=== PATIENT | male | born 1960 | race Caucasian/White ===

== ENCOUNTER → 2021-03-02 10:29 | Outpatient (CLI) | payer BC, SELFPAY ==
--- NOTE | ~2021-03-02 | XR_ITS ---
EXAMINATION: XR knee RT min 4V DATE: 03/02/2021 10:43 INDICATION: Right knee pain TECHNIQUE: Anteroposterior, 2 oblique, sunrise and crosstable lateral views of the right knee were ob tained COMPARISON: None. FINDINGS: Alignment is normal. No fracture. There is at least mild joint space narrowing in the medial compart ment of the right knee which could be underestimated on nonweightbearing imaging. Additional mild misty nt space narrowing at the medial aspect of the patellofemoral compartment. No joint effusion/layering lipohemarthrosis. Small amount of enthesopathic calcification at the distal quadriceps tendon. Soft tissues are unremarkable. IMPRESSION: 1. Mild medial and patellofemoral osteoarthritis. No right knee joint effusion or acute osseous abnor mality. Reviewed, dictated and finalized at location B. 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 Mild medial and patellofemoral osteoarthritis. No right knee joint effusion or acute osseous abnormality.
== END ==
PROVIDERS: PCP Internal Medicine; Visit Provider Internal Medicine
DX: M25.561 Pain in right knee (principal); M17.11 Unilateral primary osteoarthritis, right knee
CPT/HCPCS: 73564

== ENCOUNTER 2022-09-14 10:55 | Inpatient (IN) | payer OTHER, SELFPAY ==
[2022-09-14] VITALS (34 sets, daily range): BP systolic 102–130; BP diastolic 60–102; PULSE 66–118; RESP 12–24; TEMP 35.7–36.6; O2SAT 93–99; BMI 30.6
--- NOTE | ~2022-09-14 | US_ITS ---
EXAMINATION: US venous doppler [facility] DATE: 09/14/2022 22:45 INDICATION: Edema . TECHNIQUE: Grayscale images without and with compression and Doppler images of the bilateral lower ex tremity veins were obtained. COMPARISON: None FINDINGS: The right common femoral vein, profunda (deep) femoral vein, femoral vein, popliteal vein, peroneal v ein, posterior tibial veins, gastrocnemius vein, and greater saphenous vein are patent. The left common femoral vein, profunda (deep) femoral vein, femoral vein, popliteal vein, peroneal v ein, posterior tibial veins, gastrocnemius vein, and greater saphenous vein are patent. IMPRESSION: 1. Patent bilateral lower extremity veins. No evidence of deep venous thrombosis. Reviewed, dictated and finalized at location K. IMPRESSION: 1. Patent bilateral lower extremity veins. No evidence of deep venous thrombos is.
--- NOTE | ~2022-09-14 | XR_ITS ---
EXAMINATION: XR chest 2V DATE: 09/14/2022 12:36 INDICATION: Shortness of breath. TECHNIQUE: Frontal and lateral views of the chest were obtained. COMPARISON: None. FINDINGS: There is mild atelectasis at left lung base. There is a small left pleural effusion. No pne umothorax. Cardiomegaly is noted. There is mild chronic anterior wedging of multiple midthoracic vert ebral bodies. IMPRESSION: 1. Small left pleural effusion. 2. Cardiomegaly. Reviewed, dictated and finalized at location A.
--- NOTE | 2022-09-14 11:42 | PC.NURSE ---
Pt states he was recently diagnosed with A-fib.
--- NOTE | 2022-09-14 11:43 | ECG_ITS ---
Measurements Intervals [place] Rate: 103 P: [place]: 0 QRS: 15 QRSD: 104 T: 135 QT: 371 QTc: 487 Interpretive Statements ATRIAL FIBRILLATION WITH RAPID VENTRICULAR RESPONSE BORDERLINE R WAVE PROGRESSION, ANTERIOR LEADS NONSPECIFIC T-WAVE ABNORMALITY- HIGH LATERAL LEADS ABNORMAL ECG NO PREVIOUS ECG AVAILABLE FOR COMPARISON Electronically Signed On 09-14-2022 13:09:58 CDT by Sascha Duke D.O.
[2022-09-14 12:24] LABS: Basophils Percent Auto 0.3 % (0.2-1.2); Eosinophils Absolute Auto 0.1 K/mm3 (0-0.3); Eosinophils Percent Auto 0.8 % (0-4.4); Hematocrit 44.3 % (42.0-52.0); Hemoglobin 14.2 g/dL (14.0-18.0); Immature Granulocyte Absolute 0.01 K/mm3 (0.00-0.031); Immature Granulocyte Percent A 0.2 % (0-0.5); Lymphocytes Percent Auto 23.8 % (18.3-44.2); Mean Corpuscular HGB Conc 32.1 g/dl (32-36); Mean Corpuscular Hemoglobin 30.1 pg (26-34); Mean Corpuscular Volume 94.1 fl (80-100); Mean Platelet Volume 11.5 fl (7.4-10.4); Monocytes Absolute Auto 0.4 K/mm3 (0.1-0.6); Monocytes Percent Auto 7.1 % (2.6-8.5); Neutrophils Percent Auto 67.8 % (45.5-73.1); Platelet Count Result 132 k/mm3 (150-375); Red Blood Count 4.71 M/mm3 (4.6-6.20); Red Cell Distribution Width 13.5 % (11.5-14.5); White Blood Count 5.9 K/mm3 (4.5-10.0)
[2022-09-14 12:34] LABS: Alanine Aminotransferase 27 U/L (6-50); Albumin Level 3.9 g/dL (3.5-5.1); Alkaline Phosphatase 52 U/L (38-126); Anion Gap 6 mmol/L (8-16); Aspartate Amino Transferase 27 U/L (17-59); Bilirubin,Total 1.8 mg/dL (0.2-1.3); Blood Urea Nitrogen 22 mg/dL (9-20); Calcium 8.9 mg/dL (8.4-10.2); Carbon Dioxide 26 mmol/L (22-30); Chloride 104 mmol/L (98-107); Estimated CRCL calculation 57 ml/min; Estimated Glomerular Filt Rate > 60; Glucose 142 mg/dL (65-110); Potassium 4.5 mmol/L (3.4-5.0); Sodium 136 mmol/L (137-145)
[2022-09-14 14:43] LABS: NT Pro B Type Natriuretic Pept 1870 pg/mL (19.9-100)
[2022-09-14] MEDS: FUROSEMIDE INJ 40 MG/4 ML VIAL IV PUSH (14:52)
--- NOTE | 2022-09-14 15:06 | ED.SOB ---
HPI - SOB/Dyspnea General Chief Complaint: Shortness of Breath/Dyspnea Stated Complaint: SOB Time Seen by Provider: 09/14/22 11:55 History of Present Illness HPI Narrative: Patient is a 61-year-old male who presents ER with shortness of breath. Reports for the last 2 weeks he has been having increased exertional fatigue and dyspnea. He has to take a break after walking approximately 100 yards. No chest pain or chest pressure. He was at his primary care physician's office yesterday and found to be in atrial fibrillation which is a new diagnosis. He was told to come to the ER but waited until today. He reports no edema over the last 2 weeks as well. He endorses orthopnea. No history of heart disease. Related Data Allergies Allergy/AdvReac Type Severity Reaction Status Date / Time No Known Allergies Verified 05/27/09 10:32 Review of Systems Review of Systems: All systems reviewed & are unremarkable except as noted in HPI and below Constitutional: Constitutional: Denies chills, Reports fatigue and Denies fever(s) ENT: Denies nasal congestion and Denies sore throat Cardiovascular: Cardiovascular: Denies chest pain, Denies rapid heart rate and Denies radiating jaw, neck or arm pain Respiratory: Respiratory: Denies cough, Reports dyspnea and Denies wheezing Gastrointestinal: Gastrointestinal: Denies abdominal pain, Denies nausea and Denies vomiting Musculoskeletal: Musculoskeletal: Denies arthralgias and Denies joint swelling Comments: Leg edema PMFSH Past Medical History Medical History Atrial fibrillation Chronic hepatitis C without hepatic coma Elevated liver enzymes Gout HTN (hypertension) Type 2 diabetes mellitus Family History Family History Mother Family history of Alzheimer's disease Sibling Diabetes mellitus Father Heart disease Myocardial infarction Social History Social History (Updated 09/13/22 @ 09:58 by Reid Weston MA) Smoking status: Never smoker Alcohol intake: current Alcohol use details: rarely Substance use: never Lack of Transportation: No Lack of Food: Never True Current Housing: I Have Housing Concerned About Future Housing: No Difficulty Paying Gas/Electric Bills: No Difficulty Paying for Meds: No Currently Unemployed: No Education: Trade/Vocational Certificate Difficulty w/ Childcare or Family Care: No Exam Narrative: GENERAL: Well-appearing, well-nourished, and in no acute distress. HEAD: Normocephalic, atraumatic. EYES: PERRL and EOMI. ENT: Mucous membranes moist. CHEST: Clear to auscultation. No respiratory distress. HEART: Irregular regular rate and rhythm. Normal peripheral pulses. ABDOMEN: Soft, nontender, nondistended. EXTREMITIES: Normal range of motion. +2 edema. SKIN: Warm, dry, no rash. NEURO: Alert and oriented x3. PSYCH: Normal mood and affect. Course Course Emergency Course: Discussed case with cardiology. Admit to hospitalist service. Patient will receive Lasix/Lovenox/echocardiogram. Patient aware of diagnosis and treatment plan. Vital Signs Vital signs: Vital Signs Temperature 97.4 F L 09/14/22 11:29 Pulse Rate 78 09/14/22 11:29 Respiratory Rate 18 09/14/22 11:29 Blood Pressure 106/69 09/14/22 11:29 Pulse Oximetry 96 09/14/22 11:29 Oxygen Delivery Room Air 09/14/22 11:29 Temperature 97.4 F L 09/14/22 11:29 Pulse Rate 84 09/14/22 13:46 Respiratory Rate 13 09/14/22 13:46 Blood Pressure 113/82 09/14/22 13:45 Pulse Oximetry 98 09/14/22 13:46 Oxygen Delivery Room Air 09/14/22 11:49 MDM - SOB/Dyspnea Lab Data 09/14/22 12:12 09/14/22 12:12 Labs: Lab Results 09/14/22 Range/Units 12:12 WBC 5.9 (4.5-10.0) K/mm3 RBC 4.71 (4.6-6.20) M/mm3 Hgb 14.2 (14.0-18.0) g/dL Hct 44.3 (42.0-52
[2022-09-14] MEDS: ENOXAPARIN 80 MG/0.8 ML SYRINGE 71 MG SUB-Q (15:20)
--- NOTE | 2022-09-14 15:57 | PM.IMHP ---
H&P: HPI History of Present Illness Date/Time: 09/14/22 17:30 Chief Complaint: Shortness of breath. Narrative: This is a 61-year-old male with hypertension, type 2 diabetes mellitus, and gout who presented to the emergency department via private vehicle for evaluation of shortness of breath. The patient provides the following history. A couple of months ago he had a cold and cough and since that time he has been getting short of breath with activities that he could previously do without issue. For instance walking around work or carrying something heavy. More recently he has been getting a bit winded with everyday activities such as walking 100 yd from his car to work. He has been getting a bit short of breath at night as well and has noticed swelling in his legs. He had a wellness exam at his doctor's office today and mentioned the above symptoms. EKG was done he was found to be in atrial fibrillation and he was directed to the ED with concerns for possible CHF as well. His heart rate has been in the 90s to low 100s since arrival and he reports that his baseline heart rate is right around there. Chest x-ray shows a small left pleural effusion with cardiomegaly and proBNP was 1870. He has no sensations of irregular heartbeat, palpitations, or racing heart. He denies syncope, near syncope, chest pain, pleuritic pain, nausea, and vomiting. He has no known history of cardiac disease or dysrhythmia. Stress test x2 over the years have been negative, the last being approximately 5 years ago. He rarely snores and denies concerns for sleep apnea. No history of thyroid disease. He is a former heavy drinker but has not done so in many years. He drinks 4 to 6 cans of caffeinated sodas a day. At the time my evaluation he has no specific complaints. He has had good urine output with the Lasix and reports that his ankles are looking less swollen already. Review of Systems Review of Systems: Twelve systems were reviewed and are negative except for as per HPI. [facility] Past Medical History Medical History (Updated 09/14/22 @ 20:58 by Dhara Hudson PA-C) Chronic hepatitis C without hepatic coma Patient was referred to hepatology at [facility] and was told that he did not need treatment and they thought perhaps it was a false positive. Gout Hypertension Type 2 diabetes mellitus Surgical History Surgical History (Updated 09/14/22 @ 20:51 by Dhara Hudson PA-C) No history of previous surgery Family History Family History Mother Family history of Alzheimer's disease Sibling Diabetes mellitus Father Heart disease Myocardial infarction Social History Social History (Updated 09/14/22 @ 20:52 by Dhara Hudson PA-C) Social History: Surrogate medical decision maker: Johana Chin, significant other. Code status: Full code. Smoking status: Never smoker Alcohol intake: current Alcohol use details: Rare alcohol use in moderation. Former heavier drinker. Substance use: never Lack of Transportation: No Lack of Food: Never True Current Housing: I Have Housing Concerned About Future Housing: No Difficulty Paying Gas/Electric Bills: No Difficulty Paying for Meds: No Currently Unemployed: No Education: Bachelor's Degree Difficulty w/ Childcare or Family Care: No Spiritual care concerns: No Meds Home Medications and Allergies Home Medications Medication Instructions Recorded Confirmed Type amlodipine 5 mg tablet 5 mg PO DAILY #30 tabs 08/27/22 09/14/22 Rx lisinopril 20 mg tablet 20 mg PO DAILY #30 tabs 08/27/22 09/14/22 Rx Allergies Allergy/AdvReac Type Severity Reaction Status Date / Time No Known Allergies Verified 05/27/09 10:32 Vital Signs Vital Signs - 24 hr 09/14/22 11:29 09/14/22 11:49 09/14/22 11:49 Temperature 97.4 F L Pulse Rate 78 76 Respiratory Rate 18 20 Blood Pressure 106/69 106/80 Pulse Oximetry 96 9
--- NOTE | 2022-09-14 18:26 | ADMGEN ---
This patient, Adiel New, was admitted to IMU Room 210-. Patient/family oriented to hospital policies and general routines including ID bracelet, bed and alarms, visiting hours, pain management, procedures, bathroom and other care routines, personal items, smoking policy, room service/diet, and visiting hours. Information on how to activate the Rapid Response Team has been discussed. Patient/Family are encouraged to report perceived risks to care and to ask questions if they do not understand what they are told or what they should do.
[2022-09-14 21:48] LABS: Hemoglobin A1C 6.3 % (<5.7)
[2022-09-14] MEDS: FUROSEMIDE INJ 40 MG/4 ML VIAL 20 MG IV PUSH (21:56)
[2022-09-14] MEDS: ENOXAPARIN 100 MG/ML SYRINGE 90 MG SUB-Q (23:33)
[2022-09-15] VITALS (18 sets, daily range): BP systolic 95–138; BP diastolic 65–99; PULSE 82–114; RESP 20; TEMP 35.8–36.8; O2SAT 95–100
--- NOTE | 2022-09-15 06:00 | ECHO_ITS ---
Patient Info Name: Adiel New Age: 61 years : 1960 Gender: Male Ht: 69 in Wt: 208 lbs BSA: 2.17 m2 HR: 95 bpm Heart Rhythm: Indeterminant Technical Quality: Good Exam Date: 09/15/2022 9:03 AM Exam Location: [facility] Patient Status: Outpatient Admit Date: 09/14/2022 Staff Ordering Physician: Sundeep Marmolejo MD Subsea Engineer: Mckenzie Mahmood RDCS Attending Provider: Emili Thornton MD Referring Physician: Jaleel HUNTER; Exam Type: CA echo doppler color flow Study Info Indications - new a- fib Complete two-dimensional, color flow and Doppler transthoracic echocardiogram is performed. Summary 1. Complete two-dimensional, color flow and Doppler transthoracic echocardiogram is performed. 2. Left ventricular chamber dimension is mildly enlarged. 3. Left ventricular systolic function is severely reduced, estimated at 25-30%. 4. There is no increased left ventricular wall thickness. 5. The left ventricular diastolic function is indeterminate. 6. Global hypokinesis of the left ventricle. 7. Left atrial chamber dimension is severely enlarged. 8. Right atrial chamber dimension is mildly enlarged. 9. There is mild mitral valve regurgitation. 10. The mitral valve annulus is mildly calcified. 11. There is mild tricuspid valve regurgitation. Left Ventricle Left ventricular chamber dimension is mildly enlarged. Left ventricular systolic function is severely reduced, estimated at 25-30%. There is no increased left ventricular wall thickness. The left ventricular diastolic function is indeterminate. Global hypokinesis of the left ventricle. Right Ventricle Right ventricular chamber dimension is normal. Right ventricular systolic function is normal. Left Atria Left atrial chamber dimension is severely enlarged. Right Atria Right atrial chamber dimension is mildly enlarged. Atrial Septum Intact interatrial septum visualized by color flow imaging. Aortic Valve The aortic valve is trileaflet. There is mild aortic valve sclerosis. There is no aortic valve stenosis. There is trace aortic valve regurgitation. Pulmonic Valve The pulmonic valve is normal. There is no pulmonic valve stenosis. There is trace pulmonic regurgitation. Mitral Valve There is no mitral valve stenosis. There is mild mitral valve regurgitation. The mitral valve annulus is mildly calcified. Tricuspid Valve The tricuspid valve leaflets are normal. There is no significant tricuspid valve stenosis. There is mild tricuspid valve regurgitation. No pulmonary hypertension, estimated pulmonary arterial systolic pressure is 26 mmHg. Pericardium/Pleural The pericardium appears normal. There is trivial pericardial effusion. Inferior Vena Cava Dilated inferior vena cava with <50% collapse upon inspiration consistent with elevated right atrial pressure, 15 mmHg. Aorta The aortic root size at the sinus of Valsalva is normal. Left Ventricular Outflow Tract Name Value Normal LVOT 2D LVOT Diameter 2.0 cm LVOT Doppler LVOT Peak Gradient 5 mmHg LVOT Mean Gradient 3 mmHg LVOT VTI 21 cm LVOT VTI/AV VTI Ratio
[2022-09-15 07:56] LABS: Hemoglobin 15.2 g/dL (14.0-18.0); Mean Corpuscular HGB Conc 32.3 g/dl (32-36); Mean Corpuscular Hemoglobin 29.7 pg (26-34); Mean Platelet Volume 11.1 fl (7.4-10.4); Platelet Count Result 145 k/mm3 (150-375); Red Blood Count 5.11 M/mm3 (4.6-6.20); Red Cell Distribution Width 13.1 % (11.5-14.5); White Blood Count 6.5 K/mm3 (4.5-10.0)
[2022-09-15 08:07] LABS: Alanine Aminotransferase 26 U/L (6-50); Alkaline Phosphatase 57 U/L (38-126); Anion Gap 9 mmol/L (8-16); Aspartate Amino Transferase 28 U/L (17-59); Bilirubin,Total 2.4 mg/dL (0.2-1.3); Blood Urea Nitrogen 25 mg/dL (9-20); Calcium 8.9 mg/dL (8.4-10.2); Carbon Dioxide 27 mmol/L (22-30); Chloride 100 mmol/L (98-107); Cholesterol 179 mg/dL (0-200); Estimated CRCL calculation 63 ml/min; Estimated Glomerular Filt Rate > 60; Glucose 98 mg/dL (65-110); HDL Direct 35 mg/dL; Potassium 3.9 mmol/L (3.4-5.0); Sodium 136 mmol/L (137-145); Triglycerides 135 mg/dL (<150)
[2022-09-15 08:07] LABS: Glucose Point of Care 105 mg/dl (65-105)
[2022-09-15 08:17] LABS: LDL Cholesterol Direct 118 mg/dL
[2022-09-15] MEDS: amLODIPine BESYLATE 5 MG TABLET PO (10:08)
[2022-09-15] MEDS: lisinopriL 20 MG TABLET PO (10:10)
[2022-09-15] MEDS: FUROSEMIDE INJ 40 MG/4 ML VIAL 20 MG IV PUSH ×2 (10:10→16:58)
[2022-09-15] MEDS: ENOXAPARIN 100 MG/ML SYRINGE 90 MG SUB-Q ×2 (11:16→23:17)
[2022-09-15 11:54] LABS: Glucose Point of Care 137 mg/dl (65-105)
--- NOTE | 2022-09-15 12:42 | PM.CNCAR ---
Assessment and Plan Assessment and plan (1) Shortness of breath: Code(s): R06.02 - Shortness of breath Status: Acute Assessment and Plan: Likely related to congestive heart failure. This is likely systolic in etiology and possibly from atrial fibrillation and rapid ventricular response. Cannot exclude other etiologies O2 this point. 2D echocardiogram is ordered will be reviewed. Will start metoprolol succinate 25 mg p.o. daily. Continue IV diuresis but will transition to oral furosemide 20 mg daily starting tomorrow. Continue ZURDO-inhibitor and may transition to Entresto depending on the results of the echocardiogram. Will discontinue amlodipine in lieu of starting metoprolol (2) New onset atrial fibrillation: Code(s): I48.91 - Unspecified atrial fibrillation Status: Acute Assessment and Plan: Enoxaparin 1 milligram/kilogram subQ q.12 hours. Will start metoprolol as detailed above. Will rate control him for now and then pursue outpatient elective cardioversion in 4-6 weeks. Will michael out oral anticoagulation to his pharmacy in either put him on Eliquis 5 mg p.o. b.i.d. or Xarelto. Eventual outpatient ischemic evaluation (3) Hypertension: Code(s): I10 - Essential (primary) hypertension Status: Acute Assessment and Plan: As detailed above (4) Type 2 diabetes mellitus: Qualifiers: Diabetes mellitus halfway insulin use: without long term care social worker use Diabetes mellitus complication status: without complication Qualified Code(s): E11.9 - Type 2 diabetes mellitus without complications Code(s): E11.9 - Type 2 diabetes mellitus without complications Status: Acute Assessment and Plan: Per hospitalist History of Present Illness History of Present Illness Consult date/time: 09/15/22 12:42 Requesting physician: Emili Thornton MD Consult reason: atrial fibrillation and congestive heart failure Reason For Visit: New Onset Afib/CHF Narrative: : Reason for consultation: Atrial fibrillation, congestive heart failure Date of service 09/15/2022 Requesting provider: Dr. Thornton History: Patient is 59-year-old male who has history of hypertension, diabetes and gout who presented the hospital because of shortness of breath. Patient states that for the past couple months he has been progressively more short of breath. He states it would come and go but overall was progressively worsening. He denies any chest pain, syncope, presyncope but has been having some lower extremity swelling also. He does describe some paroxysmal nocturnal dyspnea on occasion. Dyspnea will occur whenever doing things such as mowing the grass rhythm walking about 100 yd to and from work. He does not have any palpitations. He came to the hospital was found in atrial fibrillation with rapid ventricular response as well as an elevated BNP and a left pleural effusion noted on chest x-ray. He was diuresed and his edema has improved. He remains in atrial fibrillation Review of Systems Review of Systems: All systems reviewed & are unremarkable except as noted in HPI and below Constitutional: Constitutional: Denies chills Eyes: Eyes: Denies blurry vision ENT: Reports Normal hearing present Cardiovascular: Cardiovascular: Denies chest pain, Reports leg edema and Denies palpitations Respiratory: Respiratory: Reports dyspnea Gastrointestinal: Gastrointestinal: Denies abdominal pain Genitourinary: Genitourinary: Denies hematuria Musculoskeletal: Musculoskeletal: Denies back pain Integumentary/Breasts: Skin/Breast: Denies rash Neurologic: Denies headache(s) Psychiatric: Psychiatric: Denies anxiety Endocrine: Endocrine: Denies excessive sweating Hematologic/Lymphatic: Hematologic/Lymphatic: Denies easy bleeding Allergic/Immunologic: Allergic/Immunologic: Denies GI upset with certain foods PMFSH Past Medical History Medical History (Reviewed 09/15/22 @ 12:44 by Carlton
[2022-09-15] MEDS: METOPROLOL SUCCINATE EXT REL 25 MG TABCR PO (13:56)
[2022-09-15 16:15] LABS: Glucose Point of Care 95 mg/dl (65-105)
--- NOTE | 2022-09-15 17:27 | WPDPN ---
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 Labs, imaging, EKG, and all reports were personally reviewed. He reports dyspnea on exertion for the last couple of months, worse recently. He has been started on Lasix 40 mg IV b.i.d. for findings concerning for CHF (cardiomegaly, small pleural effusion, lower extremity edema). He was also found to be in atrial fibrillation which is a new diagnosis for him; is difficult to say how long he has been in this rhythm as he does not have palpitations or sensations of racing heart. CHADS2 Vasc score is at least 2 (hypertension, diabetes) and he has been started on Lovenox 1 mg/kg. Echocardiogram, TSH, an apnea link ordered for further evaluation. Initiate sliding scale insulin, Accu-Cheks, and hypoglycemic protocol. Check hemoglobin A1c. Blood pressures have been stable. His antihypertensives will be reviewed and resumed as appropriate. He has lower extremity edema which is likely due to suspected CHF though will obtain venous Doppler ultrasounds to rule out DVT. 09/15/2022 interval history: 61-year-old male presented with complaint of shortness of breath with elevated BNP and 1870 and chest x-ray shows edema and lungs sound rales, patient is having exacerbation of CHF patient is being diuresed, etiology is uncertain, cardiac ECHO is pending will follow up, will have PT/OT evaluate the patient. Subjective Date/time seen: 09/15/22 17:27 Interval history: Shortness of breath. HPI-Narrative: This is a 61-year-old male with hypertension, type 2 diabetes mellitus, and gout who presented to the emergency department via private vehicle for evaluation of shortness of breath. The patient provides the following history. A couple of months ago he had a cold and cough and since that time he has been getting short of breath with activities that he could previously do without issue. For instance walking around work or carrying something heavy. More recently he has been getting a bit winded with everyday activities such as walking 100 yd from his car to work. He has been getting a bit short of breath at night as well and has noticed swelling in his legs. He had a wellness exam at his doctor's office today and mentioned the above symptoms. EKG was done he was found to be in atrial fibrillation and he was directed to the ED with concerns for possible CHF as well. His heart rate has been in the 90s to low 100s since arrival and he reports that his baseline heart rate is right around there. Chest x-ray shows a small left pleural effusion with cardiomegaly and proBNP was 1870. He has no sensations of irregular heartbeat, palpitations, or racing heart. He denies syncope, near syncope, chest pain, pleuritic pain, nausea, and vomiting. He has no known history of cardiac disease or dysrhythmia. Stress test x2 over the years have been negative, the last being approximately 5 years ago. He rarely snores and denies concerns for sleep apnea. No history of thyroid disease. He is a former heavy drinker but has not done so in many years.
[2022-09-15 20:08] LABS: Glucose Point of Care 333 mg/dl (65-105)
[2022-09-15] MEDS: INSULIN ASPART (*BKC) 100 UNITS/ML SUB-Q (21:02)
[2022-09-16] VITALS (16 sets, daily range): BP systolic 91–109; BP diastolic 61–82; PULSE 84–106; RESP 12–20; TEMP 36.3–37.5; O2SAT 98–99
[2022-09-16 00:09] LABS: Glucose Point of Care 75 mg/dl (65-105)
[2022-09-16 05:17] LABS: Hematocrit 47.7 % (42.0-52.0); Hemoglobin 15.9 g/dL (14.0-18.0); Mean Corpuscular HGB Conc 33.3 g/dl (32-36); Mean Corpuscular Hemoglobin 30.3 pg (26-34); Mean Platelet Volume 11.6 fl (7.4-10.4); Platelet Count Result 153 k/mm3 (150-375); Red Blood Count 5.24 M/mm3 (4.6-6.20); Red Cell Distribution Width 12.8 % (11.5-14.5); White Blood Count 7.3 K/mm3 (4.5-10.0)
[2022-09-16 05:26] LABS: Anion Gap 7 mmol/L (8-16); Blood Urea Nitrogen 27 mg/dL (9-20); Calcium 9.1 mg/dL (8.4-10.2); Carbon Dioxide 33 mmol/L (22-30); Chloride 96 mmol/L (98-107); Estimated CRCL calculation 63 ml/min; Estimated Glomerular Filt Rate > 60; Glucose 113 mg/dL (65-110); Magnesium 2.2 mg/dL (1.6-2.3); Potassium 3.9 mmol/L (3.4-5.0); Sodium 136 mmol/L (137-145)
[2022-09-16 08:17] LABS: Glucose Point of Care 108 mg/dl (65-105)
[2022-09-16] MEDS: FUROSEMIDE INJ 40 MG/4 ML VIAL 20 MG IV PUSH (08:46)
[2022-09-16] MEDS: METOPROLOL SUCCINATE EXT REL 25 MG TABCR PO (08:47)
--- NOTE | 2022-09-16 08:54 | PM.PNCARD ---
Progress Note: A&P Assessment and Plan (1) Shortness of breath: Code(s): R06.02 - Shortness of breath Status: Acute Assessment and Plan: Related to acute systolic congestive heart failure. Possibly from atrial fibrillation and rapid ventricular response. Cannot exclude other etiologies also this point. (2) New onset atrial fibrillation: Code(s): I48.91 - Unspecified atrial fibrillation Status: Acute Assessment and Plan: Discontinue enoxaparin and transition to Xarelto 20 mg p.o. daily. Continue metoprolol for rate control for now. Outpatient elective cardioversion in 4-6 weeks. (3) Hypertension: Code(s): I10 - Essential (primary) hypertension Status: Acute Assessment and Plan: As detailed above (4) Type 2 diabetes mellitus: Qualifiers: Diabetes mellitus extermination inspector insulin use: without extermination inspector use Diabetes mellitus complication status: without complication Qualified Code(s): E11.9 - Type 2 diabetes mellitus without complications Code(s): E11.9 - Type 2 diabetes mellitus without complications Status: Acute Assessment and Plan: Per hospitalist (5) Cardiomyopathy: Code(s): I42.9 - Cardiomyopathy, unspecified Status: Acute Assessment and Plan: Discontinue lisinopril. Will transition to Entresto 24/26 mg 1 tablet p.o. b.i.d.. Continue metoprolol. Order LifeVest as his EF is less than 35% for primary prevention of sudden cardiac (6) Acute systolic (congestive) heart failure: Code(s): I50.21 - Acute systolic (congestive) heart failure Status: Acute Assessment and Plan: Transition to Entresto. Continue metoprolol. Discontinue IV Lasix and will start p.o. furosemide 20 mg daily. Eventual ischemic evaluation as an outpatient Subjective Date/time seen: 09/16/22 08:54 Interval history: Reason for admission: CHF 61-year-old admitted with worsening shortness of breath, heart failure and atrial fibrillation Date of service 09/16/2022: Feels better. Swelling is essentially gone. Has not walked much but breathing is not labored at rest. No chest pain Review of Systems Review of Systems: All systems reviewed & are unremarkable except as noted in HPI and below Constitutional: Constitutional: Denies chills, Denies excessive sweating and Denies headache(s) Eyes: Eyes: Denies blurry vision ENT: Reports Normal hearing present and Denies headache(s) Cardiovascular: Cardiovascular: Denies chest pain, Reports leg edema, Denies palpitations and Reports dyspnea Respiratory: Respiratory: Reports dyspnea Gastrointestinal: Gastrointestinal: Denies abdominal pain Genitourinary: Genitourinary: Denies hematuria Musculoskeletal: Musculoskeletal: Denies back pain Integumentary/Breasts: Skin/Breast: Denies rash Neurologic: Reports Normal hearing present and Denies headache(s) Psychiatric: Psychiatric: Denies anxiety Endocrine: Endocrine: Denies excessive sweating and Denies palpitations Hematologic/Lymphatic: Hematologic/Lymphatic: Denies easy bleeding Allergic/Immunologic: Allergic/Immunologic: Denies GI upset with certain foods Exam Narrative: Awake alert oriented appears to be in no acute distress and stated age Const: General: comfortable and no acute distress HENMT: Face/Nose/Sinus: Normal nares present Mouth: Yes moist mucous membranes Eyes: General: appearance normal, both eyes and all related structures Sclera: sclerae normal Neck: Neck: supple and no JVD Chest: Other: No reproducible chest wall pain to palpation Resp: Effort & Inspection: normal respiratory effort Auscultation: clear to auscultation bilaterally Cardio: Rate: regular rate Rhythm: abnormal rhythm irregularly irregular Heart sounds: no murmurs GI: Inspection: non-distended Auscultation: normal bowel sounds Skin: General skin exam: normal color Neuro: Cranial nerves: Ye
[2022-09-16 12:09] LABS: Glucose Point of Care 144 mg/dl (65-105)
--- NOTE | 2022-09-16 14:06 | WPDPN ---
Progress Note: A&P Assessment and Plan (1) New onset atrial fibrillation: Code(s): I48.91 - Unspecified atrial fibrillation Status: Acute (2) Suspected congestive heart failure: Code(s): R09.89 - Other specified symptoms and signs involving the circulatory and respiratory systems Status: Acute (3) Shortness of breath: Code(s): R06.02 - Shortness of breath Status: Acute (4) Type 2 diabetes mellitus: Qualifiers: Diabetes mellitus terminal operations supervisor insulin use: without group home use Diabetes mellitus complication status: without complication Qualified Code(s): E11.9 - Type 2 diabetes mellitus without complications Code(s): E11.9 - Type 2 diabetes mellitus without complications Status: Acute (5) Hypertension: Code(s): I10 - Essential (primary) hypertension Status: Acute Plan The patient presented to the emergency department today after he was found to be in atrial fibrillation as per HPI. Labs, imaging, EKG, and all reports were personally reviewed. He reports dyspnea on exertion for the last couple of months, worse recently. He has been started on Lasix 40 mg IV b.i.d. for findings concerning for CHF (cardiomegaly, small pleural effusion, lower extremity edema). He was also found to be in atrial fibrillation which is a new diagnosis for him; is difficult to say how long he has been in this rhythm as he does not have palpitations or sensations of racing heart. CHADS2 Vasc score is at least 2 (hypertension, diabetes) and he has been started on Lovenox 1 mg/kg. Echocardiogram, TSH, an apnea link ordered for further evaluation. Initiate sliding scale insulin, Accu-Cheks, and hypoglycemic protocol. Check hemoglobin A1c. Blood pressures have been stable. His antihypertensives will be reviewed and resumed as appropriate. He has lower extremity edema which is likely due to suspected CHF though will obtain venous Doppler ultrasounds to rule out DVT. 09/16/2022 interval history: 61-year-old male presented with complaint of shortness of breath with elevated BNP and 1870 and chest x-ray shows edema and lungs sound rales, patient is having acute on chronic systolic congestive Heart failure as patient ejection fraction is 25%, seen by Cardiology patient will need LifeVest upon discharge, will continue to diurese the patient, will have PT/OT evaluate the patient. Subjective Date/time seen: 09/16/22 14:06 Interval history: Shortness of breath. HPI-Narrative: This is a 61-year-old male with hypertension, type 2 diabetes mellitus, and gout who presented to the emergency department via private vehicle for evaluation of shortness of breath. The patient provides the following history. A couple of months ago he had a cold and cough and since that time he has been getting short of breath with activities that he could previously do without issue. For instance walking around work or carrying something heavy. More recently he has been getting a bit winded with everyday activities such as walking 100 yd from his car to work. He has been getting a bit short of breath at night as well and has noticed swelling in his legs. He had a wellness exam at his doctor's office today and mentioned the above symptoms. EKG was done he was found to be in atrial fibrillation and he was directed to the ED with concerns for possible CHF as well. His heart rate has been in the 90s to low 100s since arrival and he reports that his baseline heart rate is right around there. Chest x-ray shows a small left pleural effusion with cardiomegaly and proBNP was 1870. He has no sensations of irregular heartbeat, palpitations, or racing heart. He denies syncope, near syncope, chest pain, pleuritic pain, nausea, and vomiting. He has no known history of cardiac disease or dysrhythmia. Stress test x2 over the years have been negative, the last being approximately 5 years ago. He rarely snores and denies concerns for sleep apnea. No history of thyro
[2022-09-16 16:21] LABS: Glucose Point of Care 102 mg/dl (65-105)
[2022-09-16] MEDS: RIVAROXABAN 20 MG TABLET PO (17:10)
[2022-09-16 20:24] LABS: Glucose Point of Care 132 mg/dl (65-105)
[2022-09-16] MEDS: SACUBITRIL/VALSARTAN 24-26 MG TABLET 1 TAB PO (22:16)
[2022-09-17] VITALS (9 sets, daily range): BP systolic 91–98; BP diastolic 58–70; PULSE 77–115; RESP 18–20; TEMP 36.3–36.4; O2SAT 98–100
[2022-09-17 04:55] LABS: Hematocrit 48.5 % (42.0-52.0); Mean Corpuscular Hemoglobin 30.1 pg (26-34); Mean Corpuscular Volume 91.3 fl (80-100); Mean Platelet Volume 11.1 fl (7.4-10.4); Platelet Count Result 153 k/mm3 (150-375); Red Blood Count 5.31 M/mm3 (4.6-6.20); White Blood Count 7.3 K/mm3 (4.5-10.0)
[2022-09-17 05:02] LABS: Anion Gap 7 mmol/L (8-16); Blood Urea Nitrogen 25 mg/dL (9-20); Calcium 8.7 mg/dL (8.4-10.2); Carbon Dioxide 30 mmol/L (22-30); Chloride 98 mmol/L (98-107); Estimated CRCL calculation 68 ml/min; Estimated Glomerular Filt Rate > 60; Glucose 115 mg/dL (65-110); Magnesium 2.1 mg/dL (1.6-2.3); Potassium 4.3 mmol/L (3.4-5.0); Sodium 135 mmol/L (137-145)
[2022-09-17 07:51] LABS: Glucose Point of Care 130 mg/dl (65-105)
[2022-09-17] MEDS: SACUBITRIL/VALSARTAN 24-26 MG TABLET 1 TAB PO (08:26)
[2022-09-17] MEDS: FUROSEMIDE 20 MG TABLET PO (08:27)
[2022-09-17] MEDS: METOPROLOL SUCCINATE EXT REL 25 MG TABCR PO (08:27)
--- NOTE | 2022-09-17 09:46 | PM.PNCARD ---
Progress Note: A&P Assessment and Plan (1) Shortness of breath: Code(s): R06.02 - Shortness of breath Status: Acute Assessment and Plan: Resolved. Related to acute systolic congestive heart failure. Possibly from atrial fibrillation and rapid ventricular response. Cannot exclude other etiologies also this point. (2) New onset atrial fibrillation: Code(s): I48.91 - Unspecified atrial fibrillation Status: Acute Assessment and Plan: Managing with rate control strategy for now with plans for outpatient DCCV in 4-6 weeks. Continue Xarelto 20 mg p.o. daily. Continue metoprolol for rate control. (3) Hypertension: Code(s): I10 - Essential (primary) hypertension Status: Acute Assessment and Plan: At goal now with adjustments to his medical therapy for his CMY (4) Type 2 diabetes mellitus: Qualifiers: Diabetes mellitus complication status: without complication Diabetes mellitus terminal make up operator insulin use: without terminal make up operator use Qualified Code(s): E11.9 - Type 2 diabetes mellitus without complications Code(s): E11.9 - Type 2 diabetes mellitus without complications Status: Acute Assessment and Plan: Per hospitalist (5) Cardiomyopathy: Code(s): I42.9 - Cardiomyopathy, unspecified Status: Acute Assessment and Plan: This is a new diagnosis, etiology unclear at this point. He has been started on GDMT Entresto 24/26 mg 1 tablet p.o. b.i.d.. Continue metoprolol succinate 25mg daily Will add jardiance today (should not affect his blood pressure) Can add spironolactone as an outpatient if BP stable LifeVest has been ordered Eventual ischemia evaluation (6) Acute systolic (congestive) heart failure: Code(s): I50.21 - Acute systolic (congestive) heart failure Status: Acute Assessment and Plan: Improved with diuresis Continue furosemide 20mg daily Low sodium diet Monitor daily weight at home Subjective Date/time seen: 09/17/22 09:46 Interval history: Reason for admission: CHF 61-year-old admitted with worsening shortness of breath, heart failure and atrial fibrillation Date of service 09/16/2022: Feels better. Swelling is essentially gone. Has not walked much but breathing is not labored at rest. No chest pain Date of service 09/17/2022: He feels well today. No shortness of breath or orthopnea. Denies any chest pain or palpitations. Eager to go home. He has lots of questions regarding his care. Review of Systems Review of Systems: All systems reviewed & are unremarkable except as noted in HPI and below Constitutional: Constitutional: Denies chills, Denies excessive sweating and Denies headache(s) Eyes: Eyes: Denies blurry vision ENT: Reports Normal hearing present and Denies headache(s) Cardiovascular: Cardiovascular: Denies chest pain, Reports leg edema, Denies palpitations and Reports dyspnea Respiratory: Respiratory: Reports dyspnea Gastrointestinal: Gastrointestinal: Denies abdominal pain Genitourinary: Genitourinary: Denies hematuria Musculoskeletal: Musculoskeletal: Denies back pain Integumentary/Breasts: Skin/Breast: Denies rash Neurologic: Reports Normal hearing present and Denies headache(s) Psychiatric: Psychiatric: Denies anxiety Endocrine: Endocrine: Denies excessive sweating and Denies palpitations Hematologic/Lymphatic: Hematologic/Lymphatic: Denies easy bleeding Allergic/Immunologic: Allergic/Immunologic: Denies GI upset with certain foods Exam Narrative: Awake alert oriented appears to be in no acute distress and stated age Const: General: comfortable and no acute distress HENMT: Face/Nose/Sinus: Normal nares present Mouth: Yes moist mucous membranes Eyes: General: appearance normal, both eyes and all related structures Sclera: sclerae normal Neck: Neck: supple and no JVD Chest: Other: No reproducible chest wall pain to palpa
--- NOTE | 2022-09-17 10:49 | PC.NURSE ---
LifeVest in place, Dr. Thornton notified.
--- NOTE | 2022-09-17 11:41 | PM.DS ---
DS: Admitting Diagnosis Discharge Date 09/17/2022 Admitting Diagnosis Shortness of breath DS: Discharge Diagnosis Discharge Diagnosis (1) New onset atrial fibrillation: Code(s): I48.91 - Unspecified atrial fibrillation Status: Acute (2) Suspected congestive heart failure: Code(s): R09.89 - Other specified symptoms and signs involving the circulatory and respiratory systems Status: Acute (3) Shortness of breath: Code(s): R06.02 - Shortness of breath Status: Acute (4) Type 2 diabetes mellitus: Qualifiers: Diabetes mellitus skilled nursing insulin use: without skilled nursing use Diabetes mellitus complication status: without complication Qualified Code(s): E11.9 - Type 2 diabetes mellitus without complications Code(s): E11.9 - Type 2 diabetes mellitus without complications Status: Acute (5) Hypertension: Qualifiers: Hypertension type: primary hypertension Qualified Code(s): I10 - Essential (primary) hypertension Code(s): I10 - Essential (primary) hypertension Status: Acute Plan The patient presented to the emergency department today after he was found to be in atrial fibrillation as per HPI. Labs, imaging, EKG, and all reports were personally reviewed. He reports dyspnea on exertion for the last couple of months, worse recently. He has been started on Lasix 40 mg IV b.i.d. for findings concerning for CHF (cardiomegaly, small pleural effusion, lower extremity edema). He was also found to be in atrial fibrillation which is a new diagnosis for him; is difficult to say how long he has been in this rhythm as he does not have palpitations or sensations of racing heart. CHADS2 Vasc score is at least 2 (hypertension, diabetes) and he has been started on Lovenox 1 mg/kg. Echocardiogram, TSH, an apnea link ordered for further evaluation. Initiate sliding scale insulin, Accu-Cheks, and hypoglycemic protocol. Check hemoglobin A1c. Blood pressures have been stable. His antihypertensives will be reviewed and resumed as appropriate. He has lower extremity edema which is likely due to suspected CHF though will obtain venous Doppler ultrasounds to rule out DVT. 09/16/2022 interval history: 61-year-old male presented with complaint of shortness of breath with elevated BNP and 1870 and chest x-ray shows edema and lungs sound rales, patient is having acute on chronic systolic congestive Heart failure as patient ejection fraction is 25%, seen by Cardiology patient will need LifeVest upon discharge, will continue to diurese the patient, will have PT/OT evaluate the patient. DS: Summary Hospital Course Reason for hospitalization: Shortness of breath. Narrative: This is a 61-year-old male with hypertension, type 2 diabetes mellitus, and gout who presented to the emergency department via private vehicle for evaluation of shortness of breath. The patient provides the following history. A couple of months ago he had a cold and cough and since that time he has been getting short of breath with activities that he could previously do without issue. For instance walking around work or carrying something heavy. More recently he has been getting a bit winded with everyday activities such as walking 100 yd from his car to work. He has been getting a bit short of breath at night as well and has noticed swelling in his legs. He had a wellness exam at his doctor's office today and mentioned the above symptoms. EKG was done he was found to be in atrial fibrillation and he was directed to the ED with concerns for possible CHF as well. His heart rate has been in the 90s to low 100s since arrival and he reports that his baseline heart rate is right around there. Chest x-ray shows a small left pleural effusion with cardiomegaly and proBNP was 1870. He has no sensations of irregular heartbeat, palpitations, or racing heart. He denies syncope, near syncope, chest pain, pleuritic pain, nausea, and vomiting. He has
[2022-09-17 12:06] LABS: Glucose Point of Care 171 mg/dl (65-105)
== END 2022-09-17 12:15 | disposition home or self-care (01) | DRG 291 ==
LOC: ANHED 15:41 → ANHIMU 17:15
PROVIDERS: Physician Assistant; Preventive Medicine Aerospace Medicine; Admitting Provider Family Medicine; Emergency Provider Emergency Medicine; PCP Internal Medicine; Visit Provider Family Medicine
DX: I11.0 Hypertensive heart disease with heart failure (principal); I50.23 Acute on chronic systolic (congestive) heart failure; I48.91 Unspecified atrial fibrillation; E11.9 Type 2 diabetes mellitus without complications; B18.2 Chronic viral hepatitis C; I42.9 Cardiomyopathy, unspecified
CPT/HCPCS: 36415; 71046; 80048; 80053; 80061; 82948; 83036; 83735; 83880; 84443; 85025; 85027; 85055; 93005; 93306; 93970; 96372; 96374; 96376; 99285; A9270; G0378; J1650; J1815; J1940

== ENCOUNTER 2022-10-23 00:05 | Day surgery (SDC) | payer OTHER, SELFPAY ==
[2022-10-22 14:45] VITALS: BMI 30.2
[2022-10-23 07:42] VITALS: BP 105/80; PULSE 82; RESP 15; TEMP 36.3; O2SAT 97; BMI 30.7
[2022-10-23 08:01] LABS: Anion Gap 11 mmol/L (8-16); Blood Urea Nitrogen 24 mg/dL (9-20); Calcium 9.1 mg/dL (8.4-10.2); Carbon Dioxide 21 mmol/L (22-30); Chloride 106 mmol/L (98-107); Estimated CRCL calculation 60 ml/min; Estimated Glomerular Filt Rate 56; Glucose 119 mg/dL (65-110); Magnesium 2.1 mg/dL (1.6-2.3); Potassium 4.6 mmol/L (3.4-5.0); Sodium 138 mmol/L (137-145)
--- NOTE | 2022-10-23 09:00 | ECG_ITS ---
Measurements Intervals [place] Rate: 74 P: SC: 0 QRS: 5 QRSD: 103 T: 118 QT: 403 QTc: 448 Interpretive Statements ATRIAL FIBRILLATION NONSPECIFIC T-WAVE ABNORMALITY ABNORMAL ECG COMPARED TO ECG 09/14/2022 11:57:49 NO SIGNIFICANT CHANGE Electronically Signed On 10-23-2022 12:08:14 CDT by Christopher Guillen M.D.
--- NOTE | 2022-10-23 09:58 | WPDMODSED ---
Moderate Sedation Note-Pt Data Patient Data Diagnosis: Left ventricular systolic dysfunction with CHF Persistent atrial fibrillation Present Complaint: No complaint Procedure to be performed/Plan: DC cardioversion Allergies Allergy/AdvReac Type Severity Reaction Status Date / Time No Known Drug Allergies AdvReac Unknown Verified 10/23/22 07:36 Home Medications Medication Instructions Recorded Confirmed Type furosemide 20 mg tablet 20 mg PO DAILY #30 tabs 09/17/22 10/22/22 Rx metoprolol succinate 25 mg 25 mg PO QAM #30 tabs 09/17/22 10/22/22 Rx tablet,extended release 24 hr (Toprol XL) rivaroxaban 20 mg tablet (Xarelto) 20 mg PO DAILY@1700 #30 tabs 09/17/22 10/22/22 Rx sacubitril 24 mg-valsartan 26 mg 1 tab PO Q12HR #60 tabs 09/17/22 10/23/22 Rx tablet (Entresto) spironolactone 25 mg tablet 25 mg PO DAILY 10/22/22 10/22/22 History Current Medications: Active Medications Sodium Chloride (Normal Saline Iv) 1,000 mls @ 30 mls/hr IV CONT .Q24H NEFTALY Sedation/Anesthesia: No previous sedation/anesthesia problems (including family history). [facility] Past Medical History Medical History (Updated 09/27/22 @ 16:31 by Laila Ramirez NP) Gout Hypertension Type 2 diabetes mellitus Surgical History Surgical History No history of previous surgery Family History Family History Mother Family history of Alzheimer's disease Sibling Diabetes mellitus Father Heart disease Myocardial infarction Social History Social History (Updated 09/27/22 @ 15:00 by Maria G Plascencia CMA) Social History: Surrogate medical decision maker: Johana Chin, significant other. Code status: Full code. Smoking status: Never smoker Second hand tobacco smoke exposure: No Alcohol intake: never Alcohol use details: Rare alcohol use in moderation. Former heavier drinker. Substance use: never Substance use type: does not use Lack of Transportation: No Lack of Food: Never True Current Housing: I Have Housing Concerned About Future Housing: No Difficulty Paying Gas/Electric Bills: No Difficulty Paying for Meds: No Currently Unemployed: No Education: Trade/Vocational Certificate Difficulty w/ Childcare or Family Care: No Living arrangements: with family Spiritual care concerns: No Mod Sed Physical Exam Physical Exam Pre Procedural Exam: Normal: Appearance, Throat, Airway, Lungs, Neuro Exam and Extremities and Variation: Heart Size (PMI is laterally displaced. Irregularly irregular rhythm), Heart Rate and Heart Rhythm Hours since solid foods: 12 Hours since liquid intake: 12 Mallampati Classification: class II Internal Medicine - PN: Obj Da Vital Signs Vital Signs: Vital Signs - 24 hr 10/23/22 07:42 Temperature 36.3 C L Pulse Rate 82 Respiratory Rate 15 Blood Pressure 105/80 Pulse Oximetry 97 Oxygen Delivery Room Air Meds/Results Medications: Active Medications Generic Name Dose Route Start Last Admin Trade Name Freq PRN Reason Stop Dose Admin Sodium Chloride 1,000 mls @ 30 mls/hr 10/23/22 07:00 Normal Saline Iv IV CONT .Q24H NEFTALY Labs 10/23/22 07:40 Labs: Laboratory Results - last 24 hr 10/23/22 07:40 Sodium 138 Potassium 4.6 Chloride 106 Carbon Dioxide 21 L Anion Gap 11 BUN 24 H Creatinine 1.30 Estim Creat Clear Calc 60 Estimated GFR 56 L Glucose 119 H Calcium 9.1 Magnesium 2.1 ASA Classification/Sedation ASA Classification/Sedation ASA Class: III Emergent: No Risks: Risks, benefits and alternatives explained and patient/family accepted plan for sedation. Patient re-evaluated immediately prior to sedation.
[2022-10-23 10:01] VITALS: BP 110/81; PULSE 85; RESP 18; TEMP 36.3; O2SAT 98
--- NOTE | 2022-10-23 10:04 | P.PCNCC_ITS ---
Cardiac Cath Procedure Note Date of procedure:: 10/23/22 Performing physician:: Christopher Guillen MD Indication:: Recent diagnosis of cardiomyopathy with CHF Persistent atrial fibrillation Brief clinical history:: This is a 61-year-old man recently presented with decompensated heart failure. No previous cardiac disease. He was found to have significant LV dilation with reduced systolic function and atrial fibrillation. An attempt at restoring sinus rhythm was been recommended following suitable time of anticoagulation. He has been taking Xarelto and has not missed any doses. Schedule today for DC cardioversion as an outpatient. Procedure Procedure performed:: DC cardioversion Sedation/Medication given:: Propofol 80 mg Estimated blood loss:: None Procedure note:: Patient was brought to the cardiac catheterization lab holding area where he was placed in the supine position with defibrillator patches in the AP position. Defibrillator was set at synchronized with 200 joules output. He was sedated with propofol in aliquots a total of 80 mg was given which provided excellent sedation. He was then counter shocked in a synchronized fashion with 200 joules restoring sinus rhythm/sinus bradycardia. While the patient was still sedated about 3 minutes after the shock he reverted back to atrial fibrillation. Findings:: As above Conclusion:: Successful uncomplicated DC cardioversion of atrial fibrillation restoring sinus rhythm using 200 joules x1 shock which only lasted for about 3 minutes and then reverted back to atrial fibrillation. Christopher Guillen MD [facility]
[2022-10-23 10:05] VITALS: BP 94/79; PULSE 85; RESP 15; O2SAT 100
[2022-10-23 10:15] VITALS: BP 96/79; PULSE 72; RESP 15; O2SAT 100
[2022-10-23 10:34] VITALS: BP 113/83; PULSE 64; RESP 12; O2SAT 99
== END 2022-10-23 11:20 | disposition home or self-care (01) ==
PROVIDERS: PCP Internal Medicine; Visit Provider Specialist
PROC: 5A2204Z Restoration of Cardiac Rhythm, Single (ICD-10-PCS; principal; 2022-10-23 08:30)
DX: I48.91 Unspecified atrial fibrillation (principal); I42.9 Cardiomyopathy, unspecified; I11.0 Hypertensive heart disease with heart failure; I50.9 Heart failure, unspecified; E11.9 Type 2 diabetes mellitus without complications; M10.9 Gout, unspecified; Z79.01 Long term (current) use of anticoagulants
CPT/HCPCS: 36415; 80048; 83735; 92960; J2704; J7030

== ENCOUNTER 2022-11-13 04:12 | Day surgery (SDC) | payer OTHER, SELFPAY ==
[2022-11-12 15:46] VITALS: BMI 30.6
[2022-11-13] VITALS (8 sets, daily range): BP systolic 92–146; BP diastolic 62–81; PULSE 40–66; RESP 12–15; TEMP 36.3; O2SAT 98; BMI 30.9
--- NOTE | 2022-11-13 08:30 | ECG_ITS ---
Measurements Intervals [place] Rate: 40 P: 40 ID: [id number] QRS: 3 QRSD: 104 T: 59 QT: 507 QTc: 414 Interpretive Statements SINUS BRADYCARDIA BORDERLINE ST-T WAVE ABNORMALITY- ANT/HIGH LAT LEADS ABNORMAL ECG COMPARED TO ECG 11/13/2022 08:42:50 SINUS BRADYCARDIA NOW PRESENT Electronically Signed On 11-13-2022 10:26:53 CDT by Sascha Duke D.O.
[2022-11-13 09:11] LABS: Anion Gap 7 mmol/L (8-16); Blood Urea Nitrogen 22 mg/dL (9-20); Calcium 8.7 mg/dL (8.4-10.2); Carbon Dioxide 23 mmol/L (22-30); Chloride 104 mmol/L (98-107); Estimated CRCL calculation 59 ml/min; Estimated Glomerular Filt Rate 56; Glucose 138 mg/dL (65-110); Magnesium 2.1 mg/dL (1.6-2.3); Potassium 4.5 mmol/L (3.4-5.0); Sodium 134 mmol/L (137-145)
--- NOTE | 2022-11-13 09:57 | WPDHPUPDATE1 ---
History and Physical Update Update Date/Time: 11/13/22 09:57 History and Physical has been reviewed, including an updated exam of the patient. There are NO changes in the patient's condition. Risks, benefits, and alternatives have been discussed and questions answered. Patient agrees to proceed with procedure.
--- NOTE | 2022-11-13 09:57 | WPDMODSED ---
Moderate Sedation Note-Pt Data Patient Data Diagnosis: Atrial fibrillation Present Complaint: Atrial fibrillation Procedure to be performed/Plan: Cardioversion Allergies Allergy/AdvReac Type Severity Reaction Status Date / Time No Known Drug Allergies AdvReac Unknown Verified 11/12/22 15:53 Home Medications Medication Instructions Recorded Confirmed Type furosemide 20 mg tablet 20 mg PO DAILY #30 tabs 09/17/22 11/12/22 Rx rivaroxaban 20 mg tablet (Xarelto) 20 mg PO DAILY@1700 #30 tabs 09/17/22 11/12/22 Rx sacubitril 24 mg-valsartan 26 mg 1 tab PO Q12HR #60 tabs 09/17/22 11/13/22 Rx tablet (Entresto) spironolactone 25 mg tablet 25 mg PO DAILY 10/22/22 11/12/22 History amiodarone 200 mg tablet 200 mg PO BID 11/12/22 11/12/22 History metoprolol succinate 25 mg 25 mg PO QPM 11/12/22 11/12/22 History tablet,extended release 24 hr (Toprol XL) Current Medications: Active Medications Sodium Chloride (Normal Saline Iv) 1,000 mls @ 30 mls/hr IV CONT .Q24H NEFTALY Sedation/Anesthesia: No previous sedation/anesthesia problems (including family history). [facility] Past Medical History Medical History Gout Hypertension Type 2 diabetes mellitus Surgical History Surgical History No history of previous surgery Family History Family History Mother Family history of Alzheimer's disease Sibling Diabetes mellitus Father Heart disease Myocardial infarction Social History Social History Social History: Surrogate medical decision maker: Johana Chin, significant other. Code status: Full code. Smoking status: Never smoker Second hand tobacco smoke exposure: No Alcohol intake: current Alcohol use details: 6pk a month Substance use: never Substance use type: does not use Lack of Transportation: No Lack of Food: Never True Current Housing: I Have Housing Concerned About Future Housing: No Difficulty Paying Gas/Electric Bills: No Difficulty Paying for Meds: No Currently Unemployed: No Education: Trade/Vocational Certificate Difficulty w/ Childcare or Family Care: No Living arrangements: other Spiritual care concerns: No Mod Sed Physical Exam Physical Exam Pre Procedural Exam: Normal: Appearance, Neuro Exam, Abdomen, Extremities and Skin and Variation: Heart Rate (Atrial fibrillation ) and Heart Rhythm (Atrial fibrillation ) Hours since solid foods: 12 Hours since liquid intake: 8 Mallampati Classification: class III Internal Medicine - PN: Obj Da Vital Signs Vital Signs: Vital Signs - 24 hr 11/13/22 08:46 Temperature 36.3 C L Pulse Rate 64 Respiratory Rate 15 Blood Pressure 110/70 Pulse Oximetry 98 Oxygen Delivery Room Air Meds/Results Medications: Active Medications Generic Name Dose Route Start Last Admin Trade Name Freq PRN Reason Stop Dose Admin Sodium Chloride 1,000 mls @ 30 mls/hr 11/13/22 08:30 Normal Saline Iv IV CONT .Q24H NEFTALY Labs 11/13/22 08:51 Labs: Laboratory Results - last 24 hr 11/13/22 08:51 Sodium 134 L Potassium 4.5 Chloride 104 Carbon Dioxide 23 Anion Gap 7 L BUN 22 H Creatinine 1.30 Estim Creat Clear Calc 59 Estimated GFR 56 L Glucose 138 H Calcium 8.7 Magnesium 2.1 ASA Classification/Sedation ASA Classification/Sedation ASA Class: III Emergent: No Risks: Risks, benefits and alternatives explained and patient/family accepted plan for sedation. Patient re-evaluated immediately prior to sedation.
--- NOTE | 2022-11-13 10:00 | ECG_ITS ---
Measurements Intervals [place] Rate: 68 P: MO: 0 QRS: 3 QRSD: 109 T: 80 QT: 440 QTc: 471 Interpretive Statements ATRIAL FIBRILLATION NONSPECIFIC T-WAVE ABNORMALITY- ANTEROLAT/HIGH LAT LEADS ABNORMAL ECG COMPARED TO ECG 10/23/2022 07:36:43 NO SIGNIFICANT CHANGES Electronically Signed On 11-13-2022 8:56:01 CDT by Sascha Duke D.O.
--- NOTE | 2022-11-13 10:31 | WPDCARDVER ---
Cardioversion Cardioversion Date of procedure: 11/13/22 Procedure: Cardioversion Pre-op diagnosis: Atrial fibrillation Post-op diagnosis: Other (Sinus rhythm) Indications: Atrial fibrillation Description of procedure: Written informed consent obtained for cardioversion. Defibrillator pads placed in an anterior posterior position. Patient's hemodyanmics and respiratory status was monitored throughout. Time out performed by RN. A total of Propofol 60mg IV administered by me. Once patient was adequately sedated, synchronized cardioversion performed at 200 joules with denominational of sinus rhythm. Patient in sinus bradycardia at heart rates of 39-40s. Patient remained hemodynamically stable throughout. No post procedure complications. Sedation: Total of Propofol 60mg IV administered by Aniceto Washington MD. Findings: Successful cardioversion to sinus rhythm with 1 shock at 200 joules. Conclusion: Successful cardioversion to sinus rhythm with 1 shock at 200 joules. Patient in sinus bradycardia at heart rates of 39-40s after cardioversion. Given the bradycardia, will decrease dose of Amiodarone from 200mg BID to 200mg QD.
== END 2022-11-13 11:40 | disposition home or self-care (01) ==
PROVIDERS: PCP Internal Medicine; Visit Provider Internal Medicine
PROC: 5A2204Z Restoration of Cardiac Rhythm, Single (ICD-10-PCS; principal; 2022-11-13 10:00)
DX: I48.91 Unspecified atrial fibrillation (principal); I10 Essential (primary) hypertension; E11.9 Type 2 diabetes mellitus without complications; M10.9 Gout, unspecified; Z79.01 Long term (current) use of anticoagulants
CPT/HCPCS: 36415; 80048; 83735; 92960; J2704; J7030

== ENCOUNTER 2023-01-03 00:53 | Day surgery (SDC) | payer OTHER, SELFPAY ==
[2023-01-03] VITALS (15 sets, daily range): BP systolic 97–132; BP diastolic 69–94; PULSE 58–80; RESP 14–16; TEMP 36.3; O2SAT 96–98; BMI 30.9
[2023-01-03 07:30] LABS: Basophils Percent Auto 0.4 % (0.2-1.2); Eosinophils Absolute Auto 0.1 K/mm3 (0-0.3); Eosinophils Percent Auto 1.4 % (0-4.4); Hematocrit 43.4 % (42.0-52.0); Hemoglobin 14.2 g/dL (14.0-18.0); Immature Granulocyte Absolute 0.01 K/mm3 (0.00-0.031); Immature Granulocyte Percent A 0.2 % (0-0.5); Immature Platelet Fraction Pct 7.5 % (0.9-11.2); Lymphocytes Absolute Auto 1.69 K/mm3 (0.9-3.2); Lymphocytes Percent Auto 34.7 % (18.3-44.2); Mean Corpuscular HGB Conc 32.7 g/dl (32-36); Mean Corpuscular Volume 91.6 fl (80-100); Mean Platelet Volume 11.1 fl (7.4-10.4); Monocytes Absolute Auto 0.5 K/mm3 (0.1-0.6); Monocytes Percent Auto 9.2 % (2.6-8.5); Neutrophils Absolute Auto 2.6 K/mm3 (1.3-6.7); Neutrophils Percent Auto 54.1 % (45.5-73.1); Platelet Count Result 125 k/mm3 (150-375); Red Blood Count 4.74 M/mm3 (4.6-6.20); Red Cell Distribution Width 13.4 % (11.5-14.5); White Blood Count 4.9 K/mm3 (4.5-10.0)
[2023-01-03 07:39] LABS: INR 1.1; Prothrombin Time 14.5 Seconds (11.1-14.7)
[2023-01-03 07:41] LABS: Anion Gap 5 mmol/L (8-16); Blood Urea Nitrogen 28 mg/dL (9-20); Calcium 8.7 mg/dL (8.4-10.2); Carbon Dioxide 27 mmol/L (22-30); Chloride 103 mmol/L (98-107); Estimated CRCL calculation 52 ml/min; Estimated Glomerular Filt Rate 47; Glucose 125 mg/dL (65-110); Potassium 4.7 mmol/L (3.4-5.0); Sodium 135 mmol/L (137-145)
[2023-01-03] MEDS: SODIUM CHLORIDE 0.9% IV 500 ML 100 ML IV CONT (08:15)
--- NOTE | 2023-01-03 09:26 | WPDHPUPDATE1 ---
History and Physical Update Update Date/Time: 01/03/23 09:26 History and Physical has been reviewed, including an updated exam of the patient. There are NO changes in the patient's condition. Risks, benefits, and alternatives have been discussed and questions answered. Patient agrees to proceed with procedure.
--- NOTE | 2023-01-03 09:26 | WPDMODSED ---
Moderate Sedation Note-Pt Data Patient Data Diagnosis: Abnormal stress test Present Complaint: Abnormal stress test Procedure to be performed/Plan: Coronary angiography, left heart cath, +/- PCI Allergies Allergy/AdvReac Type Severity Reaction Status Date / Time No Known Drug Allergies AdvReac Unknown Verified 01/03/23 07:13 Home Medications Medication Instructions Recorded Confirmed Type furosemide 20 mg tablet 20 mg PO DAILY #30 tabs 09/17/22 01/02/23 Rx rivaroxaban 20 mg tablet (Xarelto) 20 mg PO DAILY@1700 #30 tabs 09/17/22 01/02/23 Rx sacubitril 24 mg-valsartan 26 mg 1 tab PO Q12HR #60 tabs 09/17/22 01/02/23 Rx tablet (Entresto) spironolactone 25 mg tablet 25 mg PO DAILY 10/22/22 01/02/23 History amiodarone 200 mg tablet 200 mg PO DAILY #30 tabs 11/13/22 01/02/23 Rx metoprolol succinate 25 mg 50 mg PO QPM 11/26/22 01/02/23 History tablet,extended release 24 hr (Toprol XL) prednisone 20 mg tablet 40 mg PO DAILY PRN gout #10 tabs 11/26/22 01/02/23 Rx Current Medications: Active Medications Sodium Chloride (Normal Saline Iv) 500 mls @ 100 mls/hr IV CONT .Q5H NEFTALY Sedation/Anesthesia: No previous sedation/anesthesia problems (including family history). [facility] Past Medical History Medical History Colon cancer screening Gout Hypertension Type 2 diabetes mellitus Surgical History Surgical History No history of previous surgery Family History Family History Mother Family history of Alzheimer's disease Sibling Diabetes mellitus Father Heart disease Myocardial infarction Social History Social History Social History: Surrogate medical decision maker: Johana Chin, significant other. Code status: Full code. Smoking status: Never smoker Second hand tobacco smoke exposure: Yes Alcohol intake: current Alcohol use details: 6 pack/month Substance use: former Substance use type: marijuana Lack of Transportation: No Lack of Food: Never True Current Housing: I Have Housing Concerned About Future Housing: No Difficulty Paying Gas/Electric Bills: No Difficulty Paying for Meds: No Currently Unemployed: No Education: Trade/Vocational Certificate Difficulty w/ Childcare or Family Care: No Living arrangements: with family Spiritual care concerns: No Mod Sed Physical Exam Physical Exam Pre Procedural Exam: Normal: Appearance, Lungs, Heart Rate, Heart Rhythm, Neuro Exam, Abdomen, Extremities and Skin Hours since solid foods: 12 Hours since liquid intake: 8 Mallampati Classification: class III Internal Medicine - PN: Obj Da Vital Signs Vital Signs: Vital Signs - 24 hr 01/03/23 07:14 Temperature 36.3 C L Pulse Rate 80 Respiratory Rate 16 Blood Pressure 120/87 Pulse Oximetry 96 Oxygen Delivery Room Air Meds/Results Medications: Active Medications Generic Name Dose Route Start Last Admin Trade Name Freq PRN Reason Stop Dose Admin Sodium Chloride 500 mls @ 100 mls/hr 01/03/23 07:00 Normal Saline Iv IV CONT .Q5H NEFTALY Labs 01/03/23 07:19 01/03/23 07:19 Labs: Laboratory Results - last 24 hr 01/03/23 07:19 WBC 4.9 RBC 4.74 Hgb 14.2 Hct 43.4 MCV 91.6 MCH 30.0 MCHC 32.7 RDW 13.4 Plt Count 125 L MPV 11.1 H Immature Gran % (Auto) 0.2 Neut % (Auto) 54.1 Lymph % (Auto) 34.7 Boundary % (Auto) 9.2 H Eos % (Auto) 1.4 Baso % (Auto) 0.4 Lymph # (Auto) 1.69 Boundary # (Auto) 0.5 Eos # (Auto) 0.1 Baso # (Auto) 0.0 Abs Immat Gran (auto) 0.01 Absolute Neuts (auto) 2.6 Absolute Nucleated RBC 0.0 Nucleated RBC % 0.0 % Immature Plt Fraction 7.5 PT 14.5 INR 1.1 Sodium 135 L Potassium 4.7 Chloride 103 Carbon Dioxide 27 Anion Gap 5 L BUN 28 H Creatinine 1.50
--- NOTE | 2023-01-03 09:53 | WPDCARDPROC ---
Cardiac Cath Procedure Note Date of procedure:: 01/03/23 Performing physician:: CATHETERIZATION LABORATORY REPORT Procedure Date: 01/03/2023 Airline Operations Agent: Aniceto Washington M.D., [facility]? Referring Physician: Darien Andres M.D. ? Anesthesia: Versed and Fentanyl were ordered and given in my presence at 09:29, procedure ended at 09:50. Supervision of nurse monitored moderate sedation with Versed and Fentanyl was provided for 21 minutes. Total of Versed 2mg and Fentanyl 50mcg were administered by the Service Advocate Contact RN Little Schultz. Pre-op Diagnosis: Coronary artery disease Post-op Diagnosis: 1. Non-obstructive coronary arteries. Slow flow noted in the LAD and RCA. 2. Left ventricular end-diastolic pressure of 12mmHg 3. Of note, patient was in rate-controlled atrial fibrillation/atrial flutter prior to cardiac cath. Procedure(s): Left heart catheterization with coronary angiography Access Site: Right radial artery Brief History and Clinical Indications: Patient is a 62 year old male who is referred for [facility] for abnormal stress test. All risks, benefits and alternatives to left heart catheterization with or without percutaneous coronary intervention was discussed at length with the patient. Risk of complications including but not limited to bleeding, infection, arrhythmia, stroke, worsening kidney function, blood loss, groin hematoma, limb loss, emergency coronary artery bypass grafting, and even were discussed with the patient and all questions were answered. The patient understood and wished to proceed. Time out called, patient name, date of , medical record number, allergies, procedure performed, identify Airline Operations Agent, patient and staff member concurred with accurate data, procedure carried on. Findings: LEFT HEART CATHETERIZATION FINDINGS: 1. Left main: Large caliber vessel. The left main coronary artery is widely patent without any significant obstructive disease. 2. Left anterior descending: Large caliber vessel that tapers to small caliber distally. The LAD and the diagonal branches have luminal irregularities without any significant obstructive angiographic disease. Slow flow noted in the LAD. 3. Ramus: Large caliber vessel. The Ramus has luminal irregularities without any significant obstructive angiographic disease. 4. Left circumflex: Large caliber vessel. The left circumflex artery and the main marginal branches have luminal irregularities without any significant obstructive angiographic disease. 5. Right coronary artery: Large caliber vessel. The RCA has mild luminal irregularities without any significant obstructive angiographic disease. The RCA is the dominant vessel. Slow flow noted in the RCA. 6. Left ventricle: A. End-diastolic pressure 12mmHg. B. LV gram deferred. C. No significant gradient across aortic valve on catheter pullback. Description of Procedure: Informed consent signed and placed in the chart. Patient transferred to veterinary laboratory technician room. Prepped and draped in usual sterile fashion. 2% lidocaine injected subcutaneously in right wrist area. 22-gauge venipuncture catheter used to access the right radial artery under ultrasound guidance. 6-FR slender sheath placed in right radial artery. Nitroglycerine and Verapamil were given intraarterial through the sheath. Versacore wire advanced under fluoroscopy 5F Tig 4 diagnostic catheter engaged Left Main Coronary Artery. 5F Tig 4 diagnostic catheter engaged Right Coronary Artery Multiple orthogonal angiogram obtained and reviewed 5F Pigtail diagnostic catheter crossed aortic valve to obtain LVEDP, LV angiogram deferred. Hemostasis was achieved by application of TR band. ? Assessment: 1. Non-obstructive coronary arteries. Slow flow noted in the LAD and RCA. 2. Left ventricular end-diastolic pressure of 12mmHg 3. Of note, patient was in rate-controlled atrial fibrillation/atrial flutter prior to cardiac cath. Post Operative Condition: Stable
== END 2023-01-03 13:56 | disposition home or self-care (01) ==
PROVIDERS: PCP Internal Medicine; Visit Provider Internal Medicine
PROC: 4A023N7 Measurement of Cardiac Sampling and Pressure, Left Heart, Percutaneous Approach (ICD-10-PCS; CPT 93452; principal; 2023-01-03 08:30)
DX: R94.39 Abnormal result of other cardiovascular function study (principal); I48.91 Unspecified atrial fibrillation; I11.0 Hypertensive heart disease with heart failure; I50.20 Unspecified systolic (congestive) heart failure; E11.9 Type 2 diabetes mellitus without complications; M10.9 Gout, unspecified; Z79.01 Long term (current) use of anticoagulants
CPT/HCPCS: 36415; 80048; 85025; 85055; 85610; 93458; A9270; C1769; C1887; C1894; J1644; J2250; J2305; J3010; J7040

== ENCOUNTER 2023-09-12 12:32 | Outpatient (CLI) | payer OTHER, SELFPAY ==
[2023-09-12 20:30] LABS: Basophils Percent Auto 0.4 % (0.2-1.2); Eosinophils Absolute Auto 0.1 K/mm3 (0-0.3); Eosinophils Percent Auto 0.9 % (0-4.4); Hematocrit 44.2 % (42.0-52.0); Hemoglobin 14.8 g/dL (14.0-18.0); Immature Granulocyte Absolute 0.03 K/mm3 (0.00-0.031); Immature Granulocyte Percent A 0.4 % (0-0.5); Lymphocytes Absolute Auto 1.76 K/mm3 (0.9-3.2); Lymphocytes Percent Auto 26.1 % (18.3-44.2); Mean Corpuscular HGB Conc 33.5 g/dl (32-36); Mean Corpuscular Hemoglobin 31.4 pg (26-34); Mean Corpuscular Volume 93.6 fl (80-100); Mean Platelet Volume 11.5 fl (7.4-10.4); Monocytes Absolute Auto 0.5 K/mm3 (0.1-0.6); Monocytes Percent Auto 7.1 % (2.6-8.5); Neutrophils Absolute Auto 4.4 K/mm3 (1.3-6.7); Neutrophils Percent Auto 65.1 % (45.5-73.1); Platelet Count Result 179 k/mm3 (150-375); Red Blood Count 4.72 M/mm3 (4.6-6.20); Red Cell Distribution Width 12.1 % (11.5-14.5); White Blood Count 6.8 K/mm3 (4.5-10.0)
[2023-09-12 20:33] LABS: Alanine Aminotransferase 25 U/L (6-50); Albumin Level 4.5 g/dL (3.5-5.1); Alkaline Phosphatase 51 U/L (38-126); Anion Gap 8 mmol/L (4-12); Aspartate Amino Transferase 33 U/L (17-59); Bilirubin,Total 1.1 mg/dL (0.2-1.3); Blood Urea Nitrogen 18 mg/dL (9-20); Calcium 9.3 mg/dL (8.4-10.2); Carbon Dioxide 29 mmol/L (22-30); Chloride 98 mmol/L (98-107); Estimated Glomerular Filt Rate > 60; Glucose 113 mg/dL (65-110); Potassium 4.7 mmol/L (3.4-5.0); Sodium 135 mmol/L (137-145)
[2023-09-12 20:52] LABS: Prostate Specific Antigen 0.5 ng/mL (< OR = 4.0)
[2023-09-12 22:04] LABS: Hemoglobin A1C 6.4 % (<5.7)
== END 2023-09-12 12:33 | disposition home or self-care (01) ==
LOC: ANHGOSHLAB 12:33
PROVIDERS: PCP Internal Medicine; Visit Provider Internal Medicine
DX: Z12.5 Encounter for screening for malignant neoplasm of prostate (principal); R73.9 Hyperglycemia, unspecified; I48.91 Unspecified atrial fibrillation; I42.9 Cardiomyopathy, unspecified; I10 Essential (primary) hypertension
CPT/HCPCS: 36415; 80053; 83036; 84153; 85025; G0103